=== PATIENT | female | born 1965 | race Two or more races ===

== ENCOUNTER 2022-01-19 13:06 | Outpatient (CLI) | payer OTHER | END 2022-01-19 13:28 | disposition home or self-care (01) | LOC: MAMO-SONO 13:06 | PROVIDERS: ATTEND Obstetrics & Gynecology Gynecology | DX: N64.59 Other signs and symptoms in breast (principal) ==

== ENCOUNTER 2022-02-27 07:05 | Outpatient (CLI) | payer OTHER | END 2022-02-27 07:13 | disposition home or self-care (01) | LOC: LAB 07:05 | PROVIDERS: ATTEND Obstetrics & Gynecology Gynecology | DX: N30.00 Acute cystitis without hematuria (principal); R10.2 Pelvic and perineal pain; E11.9 Type 2 diabetes mellitus without complications; N95.1 Menopausal and female climacteric states; E78.2 Mixed hyperlipidemia ==

== ENCOUNTER → 2022-02-27 | Outpatient (CLI) | payer OTHER | END | disposition home or self-care (01) | LOC: SONOGRAMA 08:19 | PROVIDERS: ATTEND Obstetrics & Gynecology Gynecology | DX: N63.0 Unspecified lump in unspecified breast (principal) ==

== ENCOUNTER 2022-07-07 07:18 | Outpatient (CLI) | payer OTHER | END 2022-07-07 07:22 | disposition home or self-care (01) | LOC: LAB 07:18 | PROVIDERS: ATTEND Internal Medicine | DX: E78.2 Mixed hyperlipidemia (principal); R73.09 Other abnormal glucose; R94.5 Abnormal results of liver function studies; E55.9 Vitamin D deficiency, unspecified; E53.8 Deficiency of other specified B group vitamins; N30.00 Acute cystitis without hematuria; N30.01 Acute cystitis with hematuria ==

== ENCOUNTER 2022-08-11 13:16 | Outpatient (CLI) | payer OTHER | END 2022-08-11 13:17 | disposition home or self-care (01) | LOC: NUCLEAR 13:16 | PROVIDERS: ATTEND Internal Medicine Rheumatology | DX: M81.0 Age-related osteoporosis without current pathological fracture (principal) ==

== ENCOUNTER 2022-08-11 13:40 | Outpatient (CLI) | payer OTHER | END 2022-08-11 13:50 | disposition home or self-care (01) | LOC: RAD 13:40 | PROVIDERS: ATTEND Internal Medicine Rheumatology | DX: M51.9 Unspecified thoracic, thoracolumbar and lumbosacral intervertebral disc disorder (principal); M50.80 Other cervical disc disorders, unspecified cervical region ==

== ENCOUNTER 2022-11-09 06:07 | Outpatient (CLI) | payer OTHER ==
[2022-11-09 07:34] LABS: HEMATOCRIT 37.7 % (36.0-45.00); HEMOGLOBIN 12.7 g/dL (12.0-15.00); MEAN CELL VOLUME 87.4 fL (80.00-100.00); MEAN CORPUSCULAR HEMOGLOBIN 29.4 pg (27.00-32.0); MEAN CORPUSCULAR HGB CONC 33.7 g/dl (32.0-36.0); PLATELET COUNT 275 K/uL (150-450); RED BLOOD COUNT 4.32 M/uL (4.00-6.00)
[2022-11-09 08:16] LABS: ALBUMIN 3.8 gm/dL (3.4-5.0); BILIRUBIN TOTAL 0.38 mg/dL (0.3-1.2); CREATININE SERUM 0.82 mg/dL (0.55-1.02); GFR 72.11; GLOBULINA 3.1 G/DL (2.4-3.5); POTASSIUM 4.37 mEq/L (3.5-5.1); TOTAL PROTEIN 6.9 gm/dL (6.4-8.2)
== END 2022-11-09 06:09 | disposition home or self-care (01) ==
LOC: LAB 06:07
DX: E78.2 Mixed hyperlipidemia (principal); R73.09 Other abnormal glucose; R94.6 Abnormal results of thyroid function studies; E55.9 Vitamin D deficiency, unspecified; E53.8 Deficiency of other specified B group vitamins

== ENCOUNTER 2023-03-09 07:25 | Outpatient (CLI) | payer OTHER | END 2023-03-09 07:33 | disposition home or self-care (01) | LOC: MAMO-SONO 07:25 | DX: N64.59 Other signs and symptoms in breast (principal) ==

== ENCOUNTER 2023-05-22 07:07 | Outpatient (CLI) | payer OTHER ==
[2023-05-22 08:53] LABS: ALBUMIN 3.6 gm/dL (3.4-5.0); BILIRUBIN TOTAL 0.37 mg/dL (0.3-1.2); CALCIUM 9.5 mg/dL (8.5-10.1); CHOL HDL RATIO 3.4 (0-5.0); CREATININE SERUM 0.96 mg/dL (0.55-1.02); GFR 59.9; GLOBULINA 3.2 G/DL (2.4-3.5); POTASSIUM 5.06 mEq/L (3.5-5.1); TOTAL PROTEIN 6.8 gm/dL (6.4-8.2)
== END 2023-05-22 07:13 | disposition home or self-care (01) ==
LOC: LAB 07:07
DX: E78.2 Mixed hyperlipidemia (principal); R73.09 Other abnormal glucose; R94.6 Abnormal results of thyroid function studies; E55.9 Vitamin D deficiency, unspecified; E53.8 Deficiency of other specified B group vitamins

== ENCOUNTER 2023-05-31 09:13 | Outpatient (CLI) | payer OTHER ==
[2023-05-31 11:18] LABS: HEMATOCRIT 38.3 % (36.0-45.00); HEMOGLOBIN 12.8 g/dL (12.0-15.00); MEAN CELL VOLUME 88.6 fL (80.00-100.00); MEAN CORPUSCULAR HEMOGLOBIN 29.7 pg (27.00-32.0); MEAN CORPUSCULAR HGB CONC 33.5 g/dl (32.0-36.0); PLATELET COUNT 292 K/uL (150-450); RED BLOOD COUNT 4.32 M/uL (4.00-6.00); RED CELL DISTRIBUTION WIDTH 14.2 % (11.5-14.5)
[2023-05-31 11:30] LABS: ALBUMIN 3.9 gm/dL (3.4-5.0); BILIRUBIN TOTAL 0.42 mg/dL (0.3-1.2); CALCIUM 9.5 mg/dL (8.5-10.1); CREATININE SERUM 0.71 mg/dL (0.55-1.02); GFR 84.85; GLOBULINA 3.2 G/DL (2.4-3.5); POTASSIUM 4.87 mEq/L (3.5-5.1); TOTAL PROTEIN 7.1 gm/dL (6.4-8.2)
== END 2023-05-31 09:14 | disposition home or self-care (01) ==
LOC: LAB 09:13
PROVIDERS: ATTEND Internal Medicine Rheumatology
DX: E55.9 Vitamin D deficiency, unspecified (principal); M19.90 Unspecified osteoarthritis, unspecified site; M81.0 Age-related osteoporosis without current pathological fracture

== ENCOUNTER → 2023-09-02 06:14 | Outpatient (CLI) | payer OTHER ==
[~2023-09-02 06:14] MED LIST: CRESTOR5 MG PO; ZYRTEC10 MG PO
[2023-09-02 07:29] LABS: ob NEGATIVE (NEGATIVE)
[2023-09-02 07:42] LABS: URINE APPEARANCE Clear; URINE BILIRRUBIN Negative (NEGATIVE); URINE BLOOD Negative; URINE COLOR Yellow; URINE GLUCOSE Negative (NEGATIVE); URINE LEUKOCYTE Trace; URINE NITRATE Negative; URINE PROTEIN Negative (NEGATIVE); URINE UROBILINOGEN 0.2 E.U./dl
[2023-09-02 07:43] LABS: URINE BACTERIA 405.6 uL (0.0-1933); URINE RBC 13.8 uL (0.0-20.8); URINE WBC 18.3 uL (0.0-23.2)
[2023-09-02 08:08] LABS: HEMATOCRIT 37.1 % (36.0-45.00); HEMOGLOBIN 12.5 g/dL (12.0-15.00); MEAN CELL VOLUME 88.2 fL (80.00-100.00); MEAN CORPUSCULAR HEMOGLOBIN 29.7 pg (27.00-32.0); MEAN CORPUSCULAR HGB CONC 33.7 g/dl (32.0-36.0); PLATELET COUNT 275 K/uL (150-450); RED BLOOD COUNT 4.21 M/uL (4.00-6.00); RED CELL DISTRIBUTION WIDTH 13.8 % (11.5-14.5)
[2023-09-02 08:23] LABS: ALBUMIN 3.8 gm/dL (3.4-5.0); BILIRUBIN TOTAL 0.32 mg/dL (0.3-1.2); CALCIUM 9.1 mg/dL (8.5-10.1); CHOL HDL RATIO 2.8 (0-5.0); CREATININE SERUM 0.86 mg/dL (0.55-1.02); GFR 68.01; POTASSIUM 4.58 mEq/L (3.5-5.1); T4 TOTAL 7.9 UG/DL (4.8-13.9); TOTAL PROTEIN 6.8 gm/dL (6.4-8.2); TSH 2.53 uIU/mL (0.358-3.74)
== END | disposition home or self-care (01) ==
LOC: LAB 06:14
PROVIDERS: ATTEND Obstetrics & Gynecology Gynecology
DX: R10.2 Pelvic and perineal pain (principal); N30.00 Acute cystitis without hematuria; N30.01 Acute cystitis with hematuria; E11.9 Type 2 diabetes mellitus without complications; E05.90 Thyrotoxicosis, unspecified without thyrotoxic crisis or storm; E03.9 Hypothyroidism, unspecified; E78.2 Mixed hyperlipidemia; Z12.11 Encounter for screening for malignant neoplasm of colon

== ENCOUNTER 2023-09-05 20:22 | Emergency (ER) | payer OTHER ==
[~2023-09-05] VITALS: Ht 162.6 cm; Wt 81.6 kg
[2023-09-05] MEDS ORDERED: CRESTOR5 MG PO (20:33)
[2023-09-05] MEDS ORDERED: ZYRTEC10 MG PO (22:02)
[2023-09-05] MEDS ORDERED: CETIRIZINE HCL 5MG/5ML BLIST.PACK PO ONE (22:06)
[2023-09-05] MEDS ORDERED: CETIRIZINE HCL 5 MG/5 ML ML PO ONE (22:15)
== END 2023-09-05 22:08 | disposition home or self-care (01) ==
LOC: ER 20:24
DX: J00 Acute nasopharyngitis [common cold] (principal); Z20.822 Contact with and (suspected) exposure to COVID-19; M79.7 Fibromyalgia

== ENCOUNTER 2023-09-10 11:36 | Outpatient (CLI) | payer OTHER | END 2023-09-10 13:28 | disposition home or self-care (01) | LOC: SONOGRAMA 11:36 | PROVIDERS: ATTEND Internal Medicine | DX: E04.9 Nontoxic goiter, unspecified (principal) ==

== ENCOUNTER 2023-11-29 10:39 | Outpatient (CLI) | payer OTHER | END 2023-11-29 10:46 | disposition home or self-care (01) | LOC: RAD 10:39 | PROVIDERS: ATTEND Internal Medicine Rheumatology | DX: M51.9 Unspecified thoracic, thoracolumbar and lumbosacral intervertebral disc disorder (principal) ==

== ENCOUNTER 2023-12-28 09:55 | Outpatient (CLI) | payer OTHER ==
[2023-12-28 10:21] LABS: HEMATOCRIT 39.4 % (36.0-45.00); HEMOGLOBIN 13.1 g/dL (12.0-15.00); MEAN CELL VOLUME 88.4 fL (80.00-100.00); MEAN CORPUSCULAR HEMOGLOBIN 29.3 pg (27.00-32.0); MEAN CORPUSCULAR HGB CONC 33.2 g/dl (32.0-36.0); PLATELET COUNT 298 K/uL (150-450); RED BLOOD COUNT 4.46 M/uL (4.00-6.00); RED CELL DISTRIBUTION WIDTH 14.3 % (11.5-14.5)
[2023-12-28 11:23] LABS: ALBUMIN 3.8 gm/dL (3.4-5.0); BILIRUBIN TOTAL 0.45 mg/dL (0.3-1.2); CALCIUM 9.2 mg/dL (8.5-10.1); CHOL HDL RATIO 3.1 (0-5.0); CREATININE SERUM 0.86 mg/dL (0.55-1.02); GFR 68.01; POTASSIUM 4.34 mEq/L (3.5-5.1); TOTAL PROTEIN 6.8 gm/dL (6.4-8.2)
== END 2023-12-28 10:04 | disposition home or self-care (01) ==
LOC: LAB 09:55
DX: E78.2 Mixed hyperlipidemia (principal); E55.9 Vitamin D deficiency, unspecified; E53.8 Deficiency of other specified B group vitamins; R94.6 Abnormal results of thyroid function studies; R73.09 Other abnormal glucose

== ENCOUNTER 2024-04-14 07:22 | Outpatient (CLI) | payer OTHER ==
[2024-04-14 08:40] LABS: HEMATOCRIT 40.2 % (36.0-45.00); MEAN CELL VOLUME 88.3 fL (80.00-100.00); MEAN CORPUSCULAR HEMOGLOBIN 28.5 pg (27.00-32.0); MEAN CORPUSCULAR HGB CONC 32.3 g/dl (32.0-36.0); PLATELET COUNT 291 K/uL (150-450); RED BLOOD COUNT 4.55 M/uL (4.00-6.00)
[2024-04-14 09:09] LABS: ERYTHROCYTE SEDIMENTATION RATE 11 mm/hr
[2024-04-14 09:41] LABS: ALBUMIN 3.8 gm/dL (3.4-5.0); BILIRUBIN TOTAL 0.42 mg/dL (0.3-1.2); CREATININE SERUM 0.88 mg/dL (0.55-1.02); GLOBULINA 3.1 G/DL (2.4-3.5); POTASSIUM 4.38 mEq/L (3.5-5.1); TOTAL PROTEIN 6.9 gm/dL (6.4-8.2); TSH 2.23 uIU/mL (0.358-3.74)
== END 2024-04-14 07:23 | disposition home or self-care (01) ==
LOC: LAB 07:22
PROVIDERS: ATTEND Internal Medicine Rheumatology
DX: M19.90 Unspecified osteoarthritis, unspecified site (principal); M06.4 Inflammatory polyarthropathy; E03.9 Hypothyroidism, unspecified; E55.9 Vitamin D deficiency, unspecified; M81.0 Age-related osteoporosis without current pathological fracture

== ENCOUNTER 2024-04-14 07:44 | Outpatient (CLI) | payer OTHER | END 2024-04-14 07:50 | disposition home or self-care (01) | LOC: MAMO-SONO 07:44 | PROVIDERS: ATTEND Obstetrics & Gynecology Gynecology | DX: N64.59 Other signs and symptoms in breast (principal); N63.0 Unspecified lump in unspecified breast ==

== ENCOUNTER 2024-07-17 07:20 | Outpatient (CLI) | payer OTHER | END 2024-07-17 07:24 | disposition home or self-care (01) | LOC: SONOGRAMA 07:20 | PROVIDERS: ATTEND Obstetrics & Gynecology Gynecology | DX: R10.2 Pelvic and perineal pain (principal) ==

== ENCOUNTER → 2024-07-17 | Outpatient (CLI) | payer OTHER ==
[2024-07-17 08:12] LABS: ALBUMIN 3.9 gm/dL (3.4-5.0); BILIRUBIN TOTAL 0.32 mg/dL (0.3-1.2); CALCIUM 9.2 mg/dL (8.5-10.1); CHOL HDL RATIO 3.7 (0-5.0); CREATININE SERUM 0.8 mg/dL (0.55-1.02); GFR 73.67; GLOBULINA 3.3 G/DL (2.4-3.5); POTASSIUM 4.62 mEq/L (3.5-5.1); T4 FREE 0.74 NG/ML (0.76-1.46); TOTAL PROTEIN 7.2 gm/dL (6.4-8.2); TSH 3.15 uIU/mL (0.358-3.74)
== END | disposition home or self-care (01) ==
LOC: LAB 06:37
DX: E78.2 Mixed hyperlipidemia (principal); R73.03 Prediabetes; R94.6 Abnormal results of thyroid function studies; E55.9 Vitamin D deficiency, unspecified; E53.8 Deficiency of other specified B group vitamins

== ENCOUNTER 2024-08-14 07:38 | Outpatient (CLI) | payer OTHER | END 2024-08-14 07:39 | disposition home or self-care (01) | LOC: NUCLEAR 07:38 | PROVIDERS: ATTEND Obstetrics & Gynecology Gynecology | DX: M81.0 Age-related osteoporosis without current pathological fracture (principal) ==